=== PATIENT | female | born 1960 | race Caucasian/White ===

== ENCOUNTER 2018-02-07 10:16 | Day surgery (SDC) | payer OTHER ==
[2018-02-07] MEDS ORDERED: LIDOCAINE 2% MDV (20MG/ML) 20ML VIAL IV ONE (10:17)
[2018-02-07] MEDS ORDERED: MIDAZOLAM HCL 2MG/2ML VIAL IV ONE (10:17)
[2018-02-07] MEDS ORDERED: PROPOFOL 10 MG/ML VIAL IV ONE (10:17)
--- NOTE | 2018-02-08 13:30 | Operative Note ---
DATE OF SURGERY: 02/07/2018 OPERATION: COLONOSCOPY to the cecum with cold biopsy forceps polypectomy x1. INDICATION: Colorectal cancer screening. ANESTHESIA: Intravenous sedation was administered by the department of anesthesiology and included Diprivan titrated to effect. PROCEDURE: Following informed consent from this alert individual including a discussion of the risks and benefits of the procedure and an opportunity for the patient to ask questions, the patient was in the left lateral decubitus position. A digital rectal examination was performed. No abnormalities were noted. Following this, the Olympus [id number] video colonoscope was inserted into the rectum without resistance. The rectal mucosa had a normal appearance with normal folds and distensibility. The colonoscope was advanced up through the bowel to the level of the cecum without difficulty. The remainder of the colon had a normal appearance with normal folds distensibility. The cecum was well defined by noting the appendiceal orifice and ileocecal valve. From the base of the cecum, the colonoscope was then slowly withdrawn. No abnormalities were detected until the rectum was reached. Within the rectum, there was a diminutive 3 mm polyp noted which was removed with cold biopsy forceps. Retroflexion in the rectum was endoscopically unremarkable. The endoscope was straightened and removed. The patient tolerated the procedure well and was returned to the recovery area in stable condition. IMPRESSION: 1. Diminutive 3 mm rectal polyp removed with biopsy forceps. 2. Otherwise unremarkable colonoscopy to the cecum. RECOMMENDATIONS: The patient will be notified of pathology report. Further recommendations will be forthcoming pending pathology. Followup will also be with Dr. Rodriguez. As always, thank you for allowing me to participate in the care of your patient. CC: DO MARISOL Salmeron
== END 2018-02-07 12:30 | disposition home or self-care (01) ==
LOC: HOP 10:16
PROVIDERS: ATTEND Internal Medicine Gastroenterology
DX: Z12.11 Encounter for screening for malignant neoplasm of colon (principal); K62.1 Rectal polyp; F41.9 Anxiety disorder, unspecified